=== PATIENT | male | born 1985 | race Caucasian/White ===

== ENCOUNTER 2017-04-22 08:10 | Emergency (ER) | payer SELFPAY ==
[2017-04-22] MEDS ORDERED: Dexamethasone 4 mg/ml Vial ONE (09:03)
== END 2017-04-22 08:15 | disposition home or self-care (01) ==
LOC: MADERS 08:10
DX: S81.832A Puncture wound without foreign body, left lower leg, initial encounter (principal); L23.7 Allergic contact dermatitis due to plants, except food; I10 Essential (primary) hypertension; F41.9 Anxiety disorder, unspecified; F17.210 Nicotine dependence, cigarettes, uncomplicated; X58.XXXA Exposure to other specified factors, initial encounter
CPT/HCPCS: 96372; J1100